=== PATIENT | female | born 1960 | race Caucasian/White ===

== ENCOUNTER → 2022-05-01 | Outpatient (CLI) | payer OTHER ==
[2022-05-01 10:20] VITALS: BP 124/73; PULSE 100; RESP 18; TEMP 98.5
--- NOTE | 2022-05-01 14:09 | P.PAINPG ---
PQRS Measure Charge Sheet Comment: HISTORY OF PRESENT ILLNESS: 61 yr old female w son at side as a referral from [facility] presents today w severe and chronic LBP secondary to spinal stenosis, DDD, spondylosis, facet arthropathy without myelopathy for evaluation. Pt states her pain level is currently at 3/10 in intensity but escalates as high as 8/10 w sitting/ twisting, constant, localized in the mid to lower aspect of the lumbar spine, sore in character w radiation towards the hips and LEs. Pain is alleviated w meds (Lonsdale, Neurontin, Ibuprofen), heat, PT x 4 wks in 2019 but she stopped due to the pandemic, use of a cane for ambulation, repositioning and rest. PMH: OA, HTN, Hyperlipidemia, Hypothyroidism, MDD, Asthma PSH: Colonoscopy, Polypectomy, Hysterectomy, SH: Never smoker, No ETOH abuse, No illicit drug use. FH: Mo- Stomach CA. All: See list Meds: See list REVIEW OF ORGAN SYSTEMS: CONSTITUTIONAL: No fevers or chills. No recent weight loss. NEUROLOGICAL: + numbness and tingling along the distal extremities. No seizure disorders or headaches. MUSCULOSKELETAL: + pain PSYCHIATRIC: Denies current depression or suicidal thoughts. Physical Examinations : Constitutional : Cooperative , not in acute distress . Neurologic : Cranial nerve II to XII intact. No focal neurological deficits. Psychiatric : alert & oriented x 3. Matching mood & appropriate affect. Judgment & insight intact. Musculoskeletal : Cervical Spine Motor strength in the deltoid and biceps: Normal right side. Normal Left side Motor strength biceps and the wrist extensors: Normal right side . Normal left side Motor strength in the triceps muscle: Normal right side. Normal left side Deep tendon reflexes: Normal at the biceps. Normal at Brachioradialis. Normal at triceps Vertebral body tenderness to deep palpation over Cervical facet loading test: positive bilaterally Spurling test: positive bilaterally Neck distraction test: positive bilaterally Gian sign: positive bilaterally Lumbar spine Motor strength lower extremities ,thigh and legs 5/5 Right side , 5/5 Left side Deep tendon reflexes : Normal Knee Jerk. Normal Ankle Jerk Vertebral body tenderness over L4 Lumbar facet Loading Test: positive Right / positive Left Range of motion of the lumbar spine Flexion 30 degrees, extension 10 degrees Straight Leg Raise test: Left/ Right positive at degree Jason test: positive right / positive left. Severe tenderness over the Sacroiliac joint on the Right / Left sides Gaenslen test: positive bilaterally Seated flexion test: positive bilaterally. Sacral spine : Severe tenderness over the Sacroiliac joint: right side / left side Range of motion: Flexion of the lumbar spine <60 degrees Range of motion: Extension of the lumbar spine <20 degrees Gaenslen's Test positive Aaron's Test positive Jason test: positive right side / left side Thigh Thrust Test Sacral Thrust Test Imaging: MRI without contrast of the lumbar spine form 06/19/21 reviewed Assessment/ Plan : Lumbar stenosis, Lumbar DDD, Lumbar spondylosis Recommendation of BERONICA L4-L5. May need a series of injections, up to 3 within a 6 mo period, for optimal pain relief. Risks, benefits of procedure discussed and patient verbalized understanding. Denies aspirin or anti- coagulant use or medical history of diabetes. Protocol for discontinuation/ continuation of medications jagdeep procedure discussed. All questions answered. I have spent greater than 30 minutes on patient care today. Dr Guadalupe was available by phone for the evaluation of this patient. The time was used to review the medical records including relevant urine studies and Prescription history (MAPs), review of the available imaging, evaluation and examination of the patient, coordination of care with the medical staff and if applicable referring physicians, as well as creation of the medical record - Pain Location Back Non-Pharmacological Interventions: Heat, Inactivity, Physical Therapy Pharmacological Interventions: PRN Medication, Scheduled Medication, Topical Medication PQRS Narrative: Smoking Status Former smoker Pain Intensity [Back] 5 Hx Alcohol Use (MH) Yes Home Medications: Ambulatory Orders Albuterol Nebulized [Ventolin Nebulized] INHALATION TID PRN 05/23/14 Aspirin 81 mg PO DAILY 05/23/14 Beclomethasone Dipropionate [Qvar 40 mcg/puff] INHALATION BID 05/23/14 Gabapentin [Neurontin] 300 mg PO TID 05/23/14 HYDROcodone/APAP 5-325MG [Lonsdale 5-325] 5 - 325 mg PO TID PRN 05/23/14 Insulin Glargine [Lantus Vial] 65 units SQ HS 05/23/14 Levothyroxine Sodium [Synthroid] 100 mcg PO DAILY 05/23/14 Montelukast [Singulair] 10 mg PO HS 05/23/14 Simvastatin 40 mg PO DAILY 05/23/14 lisinopriL [Lisinopril] 10 mg PO DAILY 05/23/14 metFORMIN HCL [Glucophage] 1,000 mg PO BID 05/23/14 Metoprolol Tartrate [Lopressor] 12.5 mg PO BID #30 tab 05/24/14 Controlled Substance Measures - Controlled Substance Measures Is patient prescribed a controlled substance at discharge?: No
== END ==
LOC: PNWHC3 09:40
PROVIDERS: ATTEND Specialist
DX: M47.26 Other spondylosis with radiculopathy, lumbar region (principal); M19.90 Unspecified osteoarthritis, unspecified site; I10 Essential (primary) hypertension; E78.5 Hyperlipidemia, unspecified; E03.9 Hypothyroidism, unspecified; J45.909 Unspecified asthma, uncomplicated; M51.36 Other intervertebral disc degeneration, lumbar region; M48.061 Spinal stenosis, lumbar region without neurogenic claudication; F10.90 Alcohol use, unspecified, uncomplicated; Z87.891 Personal history of nicotine dependence; Z79.890 Hormone replacement therapy; Z91.018 Allergy to other foods; Z88.0 Allergy status to penicillin
CPT/HCPCS: 99211